=== PATIENT | female | born 1970 | race Caucasian/White ===

== ENCOUNTER 2020-07-29 13:27 | Emergency (ER) | payer BC ==
[~2020-07-29] VITALS: Ht 175.3 cm; Wt 145.0 kg
[2020-07-29 13:35] VITALS: TEMP 97.2
[2020-07-29] MEDS ORDERED: LASIX 40MG TABL40 MG PO ×2 (14:33→14:34)
[2020-07-29] MEDS ORDERED: TOPAMAX 100MG100 M1 PO (14:34)
[2020-07-29] MEDS ORDERED: PHENERGAN 25 TA25 MG PO (14:34)
[2020-07-29] MEDS ORDERED: CELEXA40 MG PO (14:35)
[2020-07-29] MEDS ORDERED: FLEXERIL 1010 MG/TAB PO (14:35)
[2020-07-29] MEDS ORDERED: VALTREX1 GM PO (14:35)
[2020-07-29] MEDS ORDERED: ULTRAM 50MG TAB50 MG PO (14:36)
[2020-07-29] MEDS ORDERED: WELLBUTRIN XL300 M1 PO (14:36)
[2020-07-29] MEDS ORDERED: TIROSINT125 MC1 PO (14:44)
[2020-07-29 14:49] LABS: BASO # 0.1 (0.0-0.2); EOS # 0.5 (0.0-0.7); EOS % 6.4 % (0-4.0); GRAN # 4.6 (1.4-6.5); GRAN % 60.9 % (42.2-75.2); HEMATOCRIT 43.3 % (37.0-47.0); HEMOGLOBIN 14.2 g/dl (12.5-16.0); LYMPH % 25.7 % (20.0-51.0); MEAN CELL VOLUME 83 fl (80.0-100.0); MEAN CORPUSCULAR HEMOGLOBIN 27 pg (27.0-31.0); MEAN CORPUSCULAR HGB CONC 33 g/dl (33.0-37.0); MEAN PLATELET VOLUME 9.2 fl (7.4-10.4); MONO # 0.4 (0.1-0.6); MONO % 5.5 % (1.7-9.3); PLATELET COUNT 300 K/mm3 (130-400); RED BLOOD COUNT 5.21 M/mm3 (4.10-5.30); REDCELL DISTRIBUTION WIDTH-CV 13.9 % (11.5-14.5)
[2020-07-29 15:00] LABS: MAGNESIUM 1.9 mg/dL (1.6-2.3)
[2020-07-29 15:36] LABS: ERYTHROCYTE SEDIMENTATION RATE 9 mm/hr (0-20)
[2020-07-29] MEDS ORDERED: PREDNISONE10 MG PO (16:00)
[2020-07-29 16:21] VITALS: BP 128/89; PULSE 87
== END 2020-07-29 16:22 | disposition home or self-care (01) ==
LOC: COL.ER 13:27
PROVIDERS: Family Medicine
DX: L30.9 Dermatitis, unspecified (principal); M79.10 Myalgia, unspecified site; Z20.828 Contact with and (suspected) exposure to other viral communicable diseases; Z88.0 Allergy status to penicillin; Z88.8 Allergy status to other drugs, medicaments and biological substances; Z79.890 Hormone replacement therapy; Z79.891 Long term (current) use of opiate analgesic